=== PATIENT | female | born 1970 | race American Indian/Alaskan Native ===

== ENCOUNTER 2018-06-02 08:36 | Observation (INO) | payer BC, OTHER ==
[2018-06-02 09:12] VITALS: O2SAT 100
[2018-06-02 09:13] LABS: BASO % 0.7 % (0.0-2.0); EOS % 0.8 % (0.0-4.0); HEMOGLOBIN 7.9 g/dL (11.0-16.0); LYMPH # 1.3 K/uL (1.0-4.3); LYMPH % 34.3 % (20.0-40.0); MEAN CORPUSCULAR HEMOGLOBIN 20.9 pg (27.0-31.0); MEAN CORPUSCULAR HGB CONC 30.3 g/dL (33.0-37.0); MEAN PLATELET VOLUME 8.1 fL (7.2-11.7); MONO # 0.3 K/uL (0.0-0.8); MONO % 8.2 % (0.0-10.0); NEUT # 2.1 K/uL (1.8-7.0); NRBC % 0.1 % (0.0-2.0); RBC 3.77 Mil/uL (3.80-5.20); RED CELL DISTRIBUTION WIDTH 16.7 % (11.5-14.5); WHITE BLOOD COUNT 3.8 K/uL (4.8-10.8)
[2018-06-02 09:15] LABS: MEAN CELL VOLUME 68.9 fL (81.0-99.0)
[2018-06-02 09:29] LABS: HCG,QUALITATIVE URINE NEGATIVE (NEGATIVE)
[2018-06-02 09:31] LABS: SQUAMOUS EPITHIAL 22 /hpf (0-5); URINE BILIRUBIN NEGATIVE (NEGATIVE); URINE BLOOD 3+ (NEGATIVE); URINE CLARITY Hazy (Clear); URINE COLOR Amber (YELLOW); URINE GLUCOSE (UA) NORMAL (Normal); URINE HYALINE CAST 0-2 /lpf (0-2); URINE LEUKOCYTE ESTERASE NEG Leu/uL (Negative); URINE PROTEIN NEGATIVE (NEGATIVE)
[2018-06-02 09:31] LABS: ALB/GLOB RATIO 1.3 (1.0-2.1); ALBUMIN 4.3 g/dL (3.5-5.0); ALT/SGPT 27 U/L (9-52); AST/SGOT 39 U/L (14-36); BLOOD UREA NITROGEN 12 mg/dL (7-17); GFR NON-AFRICAN AMERICAN > 60
--- NOTE | 2018-06-02 10:11 | C.PDOC ---
History Of Present Illness 47 y/o female with history of Anemia presents to ED with c/o generalized weakness associated with occasional lightheaded. Patient reports last blood work done by Dr.V Leon on 05/17 with Hemoglobin of 7.4. Patient denies sob, chest pain, fever, chills or any other complaints at this time. PMD: Dr. Rivers Time Seen by Provider: 06/02/18 08:47 Chief Complaint (Nursing): Abnormal Labs History Per: Patient History/Exam Limitations: no limitations Onset/Duration Of Symptoms: Days Current Symptoms Are (Timing): Still Present Past Medical History Reviewed: Historical Data, Nursing Documentation, Vital Signs Vital Signs: Last Vital Signs Temp 97.9 F 06/02/18 08:46 Pulse 68 06/02/18 08:46 Resp 18 06/02/18 08:46 BP 133/85 06/02/18 08:46 Pulse Ox 100 06/02/18 08:46 - Medical History PMH: Anemia, HTN Surgical History: No Surg Hx - [facility] Procedures COLONOSCOPY (01/30/14) OTHER HERNIA REPAIR (03/30/13) PACKED CELL TRANSFUSION (01/30/14) Family History: States: No Known Family Hx - Social History Hx Tobacco Use: No Hx Alcohol Use: No Hx Substance Use: No - Immunization History Hx Influenza Vaccination: No Hx Pneumococcal Vaccination: Yes Review Of Systems Constitutional: Negative for: Fever, Chills Eyes: Negative for: Vision Change Cardiovascular: Positive for: Light Headedness. Negative for: Chest Pain Respiratory: Negative for: Shortness of Breath Skin: Negative for: Rash Neurological: Positive for: Weakness. Negative for: Numbness Physical Exam - Physical Exam Appears: Non-toxic, No Acute Distress Skin: Warm, Dry, No Rash Head: Atraumatic, Normacephalic Eye(s): bilateral: PERRL, EOMI, Conjunctiva Pale Oral Mucosa: Moist Neck: Supple Cardiovascular: Rhythm Regular Respiratory: Normal Breath Sounds, No Rales, No Rhonchi, No Wheezing Gastrointestinal/Abdominal: Soft, No Tenderness, No Guarding, No Rebound Extremity: Normal ROM, Capillary Refill (<2 seconds) Neurological/Psych: Oriented x3, Normal Speech, Normal Cognition ED Course And Treatment - Laboratory Results Result Diagrams: 06/02/18 09:10 06/02/18 09:10 O2 Sat by Pulse Oximetry: 100 (RA) Pulse Ox Interpretation: Normal Progress Note: Blood work done. Hemoglobin of 7.9. Spoke with Dr. Rivers requests patient receive 2 units of RBCs and 125mg of Iron. Patient to be admitted to Obs for transfusion and upon tranfusion done be discharged with follow up at Dr. Rivers office on 06/05/18. Disposition - Disposition Disposition: HOSPITALIZED Disposition Time: 10:10 Condition: FAIR - Clinical Impression Clinical Impression: Symptomatic anemia - PA / [employer] / Resident Statement MD/DO has reviewed & agrees with the documentation as recorded. - Scribe Statement The provider has reviewed the documentation as recorded by the Glenysibrenard Nichols All medical record entries made by the Ngoc were at my direction and personally dictated by me. I have reviewed the chart and agree that the record accurately reflects my personal performance of the history, physical exam, medical decision making, and the department course for this patient. I have also personally directed, reviewed, and agree with the discharge instructions and disposition. Decision To Admit - Pt Status Changed To: Hospital Disposition Of: Observation - . Bed Request Type: Regular Admitting Physician: Bert Leon Patient Diagnosis: Symptomatic anemia
[2018-06-02] MEDS ORDERED: Ferric Sodium Gluconat Complex 62.5 mg/5 ml Vial IVPB STA (10:17)
[2018-06-02] MEDS ORDERED: Ferric Sodium Gluconat Complex 125 MG in Sodium Chloride 0.9% 100 ML IVPB STA (10:21)
[2018-06-02 17:27] VITALS: RESP 20
[2018-06-02 19:45] VITALS: BP 132/80; PULSE 82; TEMP 98.4
--- NOTE | 2018-06-02 20:57 | CON ---
DATE: 06/02/2018 HEMATOLOGY CONSULTATION HISTORY OF PRESENT ILLNESS: This is a 47-year-old woman known to me for iron deficiency anemia due to heavy bleeding from her vaginal region and she comes in while she is very weak, lightheaded, short of breath on exertion, and her hemoglobin is found to be at 7.9, with an MCV of 68.9, white count of 3.8, and platelet count of 272. She is pretty weak, so we are going to give her 3 units of packed cells, and we will give her IV iron and then she is going to come back to my office this coming week for further IV iron and rechecking of her blood count. PHYSICAL EXAMINATION: SKIN: No petechia. No bruises. HEENT: Anicteric. LYMPH NODES: Nonpalpable in the axillary, cervical, supraclavicular, or inguinal regions. LUNGS: Clear. CARDIOVASCULAR SYSTEM: S1, S2. No rubs, gallops, or murmur. ABDOMEN: Shows no liver or spleen tenderness. No rebound or ascites. EXTREMITIES: No edema. PUBLIC SAFETY POLICE: No focal findings. PLAN: So at this point, what we are doing is we are going to transfuse her and I will see her in the office probably on Tuesday or Tuesday. Pato Rivers MD
--- NOTE | 2018-06-05 07:58 | CP.PCM.HP ---
History of Present Illness - History of Present Illness History of Present Illness: Pt discharge befroe being seen Present on Admission - Present on Admission Any Indicators Present on Admission: No History of DVT/PE: No History of Uncontrolled Diabetes: No Urinary Catheter: No Decubitus Ulcer Present: No Past Patient History - Past Medical History & Family History Past Medical History?: Yes - Past Social History Smoking Status: Never Smoked - CARDIAC Hx Hypertension: Yes - HEMATOLOGICAL/ONCOLOGICAL Hx Anemia: Yes - MUSCULOSKELETAL/RHEUMATOLOGICAL Hx Falls: Yes Other/Comment: "bone pain" - PSYCHIATRIC Hx Substance Use: No - SURGICAL HISTORY Hx Gastric Bypass Surgery: Yes Hx Herniorrhaphy: Yes - ANESTHESIA Hx Anesthesia: Yes Hx Anesthesia Reactions: No Hx Malignant Hyperthermia: No Meds Allergies/Adverse Reactions: Allergies Allergy/AdvReac Type Severity Reaction Status Date / Time No Known Allergies Allergy Unverified 03/29/13 21:29 Results - Vital Signs Recent Vital Signs: Last Vital Signs Temp 98.4 F 06/02/18 18:30 Pulse 82 06/02/18 18:30 Resp 20 06/02/18 18:06 BP 132/80 06/02/18 18:30 Pulse Ox 100 06/02/18 18:30 - Labs Result Diagrams: 06/02/18 09:10 06/02/18 09:10
== END 2018-06-02 20:40 | disposition home or self-care (01) ==
LOC: C.ER 08:36 → C.9E 10:10 → C.3T 16:01
PROVIDERS: ADMIT Internal Medicine; ATTEND Internal Medicine
DX: D50.0 Iron deficiency anemia secondary to blood loss (chronic) (principal); I10 Essential (primary) hypertension; Z98.84 Bariatric surgery status
CPT/HCPCS: 36430; 80053; 81001; 84703; 85025; 86850; 86900; 86920; 96374; 99285; G0378; J2916; P9051